=== PATIENT | male | born 1960 | race Two or more races ===

== ENCOUNTER 2018-06-30 05:50 | Day surgery (SDC) | payer OTHER ==
[~2018-06-30 05:50] MED LIST: ATACAND16 MG PO; CYMBALTA60 MG PO; JANUMET 50-1,01 EACH PO; ZOCOR PO
[2018-06-30] MEDS ORDERED: PERCOCET 5-3251 EACH PO (08:16)
[2018-06-30] MEDS ORDERED: RECTICARE30 GM TOP (08:17)
== END 2018-06-30 14:35 | disposition home or self-care (01) ==
LOC: CIR.AMB 05:50
DX: K60.1 Chronic anal fissure (principal); K60.3 Anal fistula